=== PATIENT | female | born 1995 | race Hispanic/Latino ===

== ENCOUNTER 2018-03-03 02:35 | Emergency (ER) | payer OTHER ==
--- NOTE | 2018-03-03 03:26 | EDPHYS ---
Physician Documentation [facility] Name: Vanessa Carson Age: 23 yrs Sex: Female : 1995 Arrival Date: 03/03/2018 Time: 02:37 Bed 13 Private MD: ED Physician Carina Quezada HPI: 03/03 03:23 This 23 yrs old Female presents to ER via Ambulatory with complaints of Sore ma2 Throat. 03:23 The patient presents with sore throat, dysphagia. Onset: The symptoms/episode ma2 began/occurred gradually, 2 day(s) ago. Severity of symptoms: At their worst the symptoms were moderate. Associated signs and symptoms: Pertinent positives: cough, Pertinent negatives chest pain, dysphagia, fever, nausea, rhinorrhea. The patient has not experienced similar symptoms in the past. Historical: - Allergies: 02:56 Amoxicillin; ea - Home Meds: 02:56 None [Active]; ea - PMHx: 02:56 None; ea - PSHx: 02:56 None; ea - Immunization history:: Adult Immunizations up to date. - Social history:: Smoking status: Patient/guardian denies using tobacco, Patient/guardian denies using alcohol, street drugs, The patient lives with family. - Ebola Screening: : No symptoms or risks identified at this time. - Family history:: not pertinent. ROS: 03:23 Constitutional: Negative for fever, chills, and weight loss, Respiratory: Negative for ma2 shortness of breath, cough, wheezing, and pleuritic chest pain, Abdomen/GI: Negative for abdominal pain, nausea, diarrhea, and constipation. 03:23 ENT: Positive for sore throat, Negative for drainage from ear(s), Gum pain hearing loss. 03:23 All other systems are negative. Exam: 03:23 Constitutional: This is a well developed, well nourished patient who is awake, alert, ma2 and in no acute distress. Chest/axilla: Normal chest wall appearance and motion. Nontender with no deformity. No lesions are appreciated. Cardiovascular: Regular rate and rhythm with a normal S1 and S2. No gallops, murmurs, or rubs. Normal PMI, no JVD. No pulse deficits. Respiratory: Lungs have equal breath sounds bilaterally, clear to auscultation and percussion. No rales, rhonchi or wheezes noted. No increased work of breathing, no retractions or nasal flaring. Abdomen/GI: Soft, non-tender, with normal bowel sounds. No distension or tympany. No guarding or rebound. No evidence of tenderness throughout. MS/ Extremity: Pulses equal, no cyanosis. Neurovascular intact. Full, normal range of motion. Neuro: Awake and alert, GCS 15, oriented to person, place, time, and situation. Cranial nerves II-XII grossly intact. Motor strength 5/5 in all extremities. Sensory grossly intact. Cerebellar exam normal. Normal gait. 03:23 ENT: TM's: are normal, Nose: is normal, Posterior pharynx: Tonsils: bilaterally enlarged, with exudate, with ulcerations, pooling of secretions, is not appreciated. Vital Signs: 02:57 BP 128 / 69; Pulse 102; Resp 18; Temp 98.3; Pulse Ox 98% on R/A; Weight 139.71 kg; ea Height 5 ft. 3 in. (160.02 cm); Pain 8/10; 03:32 BP 120 / 62; Pulse 80; Resp 18 S; Pulse Ox 99% on R/A; ea 02:57 Body Mass Index 54.56 (139.71 kg, 160.02 cm) ea MDM: 03:03 Patient medically screened. ma2 03:23 Differential diagnosis: bronchitis, gastroesophageal reflux disease, pharyngitis, upper ma2 respiratory infection. Data reviewed: vital signs, nurses notes, lab test result(s). Counseling: I had a detailed discussion with the patient and/or guardian regarding: the historical points, exam findings, and any diagnostic results supporting the discharge/admit diagnosis, the presence of at least one elevated blood pressure reading (>120/80) during this emergency department visit. Response to treatment: the patient's symptoms have markedly improved after treatment. Administered Medications: 03:31 Drug: TORadol 60 mg Route: IM; Site: left gluteus; ea 03:38 Follow up: Response: No adverse reaction ea Disposition: 03/03/18 03:25 Discharged to Home. Impression: Acute upper respiratory infection, unspecified. - Condition is Stable. - Discharge Instructions: Upper Respiratory Infection, Adult. - Prescriptions for Keflex 500 mg Oral Capsule - take 1 capsule by ORAL route every 6 hours for 10 days; 40 capsule. Tylenol- Codeine #3 300-30 mg Oral Tablet - take 2 tablet by ORAL route every 6 hours As needed; 30 tablet. Erythromycin 5 mg/gram (0.5 %) Ophthalmic Ointment - apply 1 centimeter by OPHTHALMIC route 2-3 times daily for 7 days; 1 tube. - Medication Reconciliation Form, Thank You Letter, Antibiotic Education, Prescription Opioid Use form. - Follow up: Private Physician; When: Tomorrow; Reason: Continuance of care. Signatures: Bianca Garces RN RN ea Alzahri, Mohammad, MD MD ma2 Corrections: (The following items were deleted from the chart) 03:40 03:25 03/03/2018 03:25 Discharged to Home. Impression: Acute upper respiratory ea infection, unspecified. Condition is Stable. Forms are Medication Reconciliation Form, Thank You Letter, Antibiotic Education, Prescription Opioid Use. Follow up: Private Physician; When: Tomorrow; Reason: Continuance of care. ma2
--- NOTE | 2018-03-03 03:26 | ER ---
Nurse's Notes [facility] Name: Vanessa Carson Age: 23 yrs Sex: Female : 1995 Arrival Date: 03/03/2018 Time: 02:37 Bed 13 Private MD: Diagnosis: Acute upper respiratory infection, unspecified Presentation: 03/03 02:53 Presenting complaint: Patient states: Patient reports sore throat, congestion and left ea red eye since , denies fever or productive cough. Transition of care: patient was not received from another setting of care. Onset of symptoms was March 03, 2018. Risk Assessment: Do you want to hurt yourself or someone else? Patient reports no desire to harm self or others. Initial Sepsis Screen: Does the patient meet any 2 criteria? HR > 90 bpm. Yes Does the patient have a suspected source of infection? No. Patient's initial sepsis screen is negative. Care prior to arrival: None. 02:53 Method Of Arrival: Ambulatory ea 02:53 Acuity: MONTRELL 3 ea Triage Assessment: 02:56 General: Appears in no apparent distress. Behavior is calm, cooperative, appropriate ea for age. Pain: Complains of pain in oat. Historical: - Allergies: 02:56 Amoxicillin; ea - Home Meds: 02:56 None [Active]; ea - PMHx: 02:56 None; ea - PSHx: 02:56 None; ea - Immunization history:: Adult Immunizations up to date. - Social history:: Smoking status: Patient/guardian denies using tobacco, Patient/guardian denies using alcohol, street drugs, The patient lives with family. - Ebola Screening: : No symptoms or risks identified at this time. - Family history:: not pertinent. Screenin:58 Abuse screen: Denies threats or abuse. Nutritional screening: No deficits noted. ea Tuberculosis screening: No symptoms or risk factors identified. Fall Risk None identified. Assessment: 02:58 General: Appears uncomfortable. Neuro: Level of Consciousness is awake, alert, obeys ea commands, Oriented to person, place, time, situation. Cardiovascular: Heart tones S1 S2 present Patient's skin is warm and dry. Respiratory: Airway is patent Respiratory effort is even, unlabored, Respiratory pattern is regular, symmetrical, Breath sounds are clear bilaterally. GI: Abdomen is non-distended. EENT: Throat is reddened. EENT: Reports pain when swallowing. Derm: Skin is pink, warm \T\ dry. 03:38 Reassessment: Patient and/or family updated on plan of care and expected duration. Pain ea level reassessed. Patient is alert, oriented x 3, equal unlabored respirations, skin warm/dry/pink. Discharge instructions give to patient, verbalized the understanding of instruction. Vital Signs: 02:57 BP 128 / 69; Pulse 102; Resp 18; Temp 98.3; Pulse Ox 98% on R/A; Weight 139.71 kg; ea Height 5 ft. 3 in. (160.02 cm); Pain 8/10; 03:32 BP 120 / 62; Pulse 80; Resp 18 S; Pulse Ox 99% on R/A; ea 02:57 Body Mass Index 54.56 (139.71 kg, 160.02 cm) ea ED Course: 02:37 Patient arrived in ED. am2 02:53 Bianca Garces RN is Primary Nurse. ea 02:55 Triage completed. ea 02:58 Arm band placed on right wrist. Patient placed in an exam room, in the treatment room, ea on pulse oximetry. 02:58 Patient has correct armband on for positive identification. Bed in low position. Call ea light in reach. Side rails up X2. 03:03 Carina Quezada MD is Attending Physician. ma2 03:39 No provider procedures requiring assistance completed. Patient did not have IV access ea during this emergency room visit. Administered Medications: 03:31 Drug: TORadol 60 mg Route: IM; Site: left gluteus; ea 03:38 Follow up: Response: No adverse reaction ea Outcome: 03:25 Discharge ordered by . ma2 03:40 Discharged to home ambulatory, with family. ea 03:40 Condition: improved 03:40 Discharge instructions given to patient, Instructed on discharge instructions, follow up and referral plans. medication usage, Demonstrated understanding of instructions, follow-up care, medications, Prescriptions given X 3. 03:40 Patient left the ED. ea Signatures: Liana Lambert am2 Bianca Garces RN RN ea Alzahri, Mohammad, MD MD ma2 Corrections: (The following items were deleted from the chart) 03:42 03:32 BP 120 / 62; Pulse 18bpm; Resp 80bpm; Pulse Ox 99% RA; ea ea
[2018-03-03] MEDS ORDERED: KETOROLAC 30 MG/ML INJ ONE (03:36)
[2018-03-03 04:41] VITALS: TEMP 98.3
[2018-03-03 04:42] VITALS: BP 120/62; O2SAT 99
== END 2018-03-03 03:40 | disposition home or self-care (01) ==
LOC: ER 02:35
DX: J06.9 Acute upper respiratory infection, unspecified (principal)
CPT/HCPCS: 96372; 99283